=== PATIENT | female | born 1940 | race Caucasian/White ===

== ENCOUNTER 2016-12-28 16:17 | Emergency (ER) | payer OTHER, MEDICARE ==
[2016-12-28 16:32] VITALS: BP 130/89; PULSE 86; TEMP 98.1; BMI 20.9
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
[2016-12-28] MEDS ORDERED: RABIES IMMUNE GLOBULIN 300 UNITS/2 ML VIAL IM ONE (17:09)
[2016-12-28] MEDS ORDERED: RABIES VACCINE (PCEC)/PF 2.5 UNIT/VIAL IM ONE (17:10)
[2016-12-28] MEDS ORDERED: RABIES IMMUNE GLOBULIN 300 UNITS/2 ML VIAL ONE (17:26)
[2016-12-28] MEDS ORDERED: DIPHTH,PERTUSS(ACELL),TET 0.5 ML DISP.SYRIN IM ONE (17:53)
[2016-12-28] MEDS ORDERED: AMOX TR/POT CLAV 875MG/125MG TABLETS (FP) PO ONE (17:55)
[2016-12-28] MEDS ORDERED: AMOX TR/POT CLAV 875MG/125MG TABLETS (FP) ONE (17:58)
== END 2016-12-28 18:08 | disposition home or self-care (01) ==
LOC: FER 16:17
PROC: 3E0234Z Introduction of Serum, Toxoid and Vaccine into Muscle, Percutaneous Approach (ICD-10-PCS; principal; 2016-12-28)
DX: S81.851A Open bite, right lower leg, initial encounter (principal); Z20.3 Contact with and (suspected) exposure to rabies; W64.XXXA Exposure to other animate mechanical forces, initial encounter; Y93.55 Activity, bike riding; Y92.830 Public park as the place of occurrence of the external cause; E11.9 Type 2 diabetes mellitus without complications; Z79.84 Long term (current) use of oral hypoglycemic drugs; E78.00 Pure hypercholesterolemia, unspecified; E07.9 Disorder of thyroid, unspecified; Z87.891 Personal history of nicotine dependence
CPT/HCPCS: 90375; 90471; 90675; 90715; 99282-25

== ENCOUNTER 2016-12-31 09:10 | Emergency (ER) | payer OTHER, MEDICARE ==
[2016-12-31 09:18] VITALS: BP 109/63; PULSE 77; TEMP 98.1; BMI 20.9
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
[2016-12-31] MEDS ORDERED: RABIES VACCINE (PCEC)/PF 2.5 UNIT/VIAL IM ONE (09:46)
== END 2016-12-31 10:01 | disposition home or self-care (01) ==
LOC: FER 09:10
PROC: 3E0234Z Introduction of Serum, Toxoid and Vaccine into Muscle, Percutaneous Approach (ICD-10-PCS; principal; 2016-12-31)
DX: Z23 Encounter for immunization (principal); Z20.3 Contact with and (suspected) exposure to rabies; E11.9 Type 2 diabetes mellitus without complications; E78.00 Pure hypercholesterolemia, unspecified; E07.9 Disorder of thyroid, unspecified; Z87.891 Personal history of nicotine dependence
CPT/HCPCS: 90675; 99282-25

== ENCOUNTER 2017-01-04 09:50 | Emergency (ER) | payer OTHER, MEDICARE ==
[2017-01-04] MEDS ORDERED: RABIES VACCINE (PCEC)/PF 2.5 UNIT/VIAL IM ONE (09:53)
--- NOTE | 2017-01-04 09:57 | PDOC ---
*Physical Exam - Physical Exam Comments: 01/04/17 09:55 Patient for next in her series of rabies injections. No reaction so far to the vaccine. No localized or systemic symptoms. The area of initial injury on the right rodriguez is healed. There is no pain, tenderness, erythema, induration, or other sign of infection. To continue with scheduled immunizations and follow-up with her primary physician. *DC/Admit/Observation/Transfer Diagnosis at time of Disposition: Animal bite - Discharge Dispostion Disposition: HOME Condition at time of disposition: Stable Admit: No - Patient Instructions Printed Discharge Instructions: DI for Rabies Vaccine
[2017-01-04 10:15] VITALS: BP 122/72; PULSE 66; TEMP 98.1; BMI 20.9
== END 2017-01-04 10:19 | disposition home or self-care (01) ==
LOC: FER 09:50
PROC: 3E0234Z Introduction of Serum, Toxoid and Vaccine into Muscle, Percutaneous Approach (ICD-10-PCS; principal; 2017-01-04)
DX: Z23 Encounter for immunization (principal)
CPT/HCPCS: 90471; 90675; 99282-25

== ENCOUNTER 2017-01-11 10:23 | Emergency (ER) | payer OTHER, MEDICARE ==
[2017-01-11 10:34] VITALS: BP 111/74; PULSE 66; TEMP 98.2; BMI 20.9
[2017-01-11] MEDS ORDERED: RABIES VACCINE (PCEC)/PF 2.5 UNIT/VIAL IM ONE (10:55)
--- NOTE | 2017-01-11 10:55 | PDOC ---
*Physical Exam - Vital Signs Last Vital Signs Temp Pulse Resp BP Pulse Ox 98.2 F 66 16 111/74 98 01/11/17 10:25 01/11/17 10:25 01/11/17 10:25 01/11/17 10:25 01/11/17 10:25 - Physical Exam Comments: 01/11/17 11:08 Presents for next in her series of rabies vaccinations. No untoward reactions. Alert, in no acute distress, no complaints. To follow-up as directed. *DC/Admit/Observation/Transfer Diagnosis at time of Disposition: Need for rabies vaccination - Discharge Dispostion Disposition: HOME Condition at time of disposition: Stable Admit: No - Patient Instructions Printed Discharge Instructions: DI for Rabies Vaccine
== END 2017-01-11 11:22 | disposition home or self-care (01) ==
LOC: FER 10:23
PROC: 3E0234Z Introduction of Serum, Toxoid and Vaccine into Muscle, Percutaneous Approach (ICD-10-PCS; principal; 2017-01-11)
DX: Z23 Encounter for immunization (principal); Z20.3 Contact with and (suspected) exposure to rabies
CPT/HCPCS: 90471; 90675; 99281-25

== ENCOUNTER 2017-01-25 09:09 | Emergency (ER) | payer OTHER, MEDICARE ==
[2017-01-25 09:16] VITALS: BP 132/72; PULSE 68; TEMP 98.7; BMI 20.9
[2017-01-25] MEDS ORDERED: RABIES VACCINE (PCEC)/PF 2.5 UNIT/VIAL IM ONE (09:41)
--- NOTE | 2017-01-25 09:44 | PDOC ---
*Physical Exam - Vital Signs Last Vital Signs Temp Pulse Resp BP Pulse Ox 98.7 F 68 16 132/72 100 01/25/17 09:13 01/25/17 09:13 01/25/17 09:13 01/25/17 09:13 01/25/17 09:13 - Physical Exam Comments: 01/25/17 09:41 Last rabies immunization. Tolerating well. No reaction to prior injections. Vital signs normal. Physical exam without significant abnormalities. *DC/Admit/Observation/Transfer Diagnosis at time of Disposition: Rabies, need for prophylactic vaccination against - Discharge Dispostion Disposition: HOME Condition at time of disposition: Stable Admit: No - Patient Instructions Printed Discharge Instructions: DI for Rabies Vaccine
== END 2017-01-25 09:58 | disposition home or self-care (01) ==
LOC: FER 09:09
PROC: 3E0234Z Introduction of Serum, Toxoid and Vaccine into Muscle, Percutaneous Approach (ICD-10-PCS; principal; 2017-01-25)
DX: Z23 Encounter for immunization (principal); Z20.3 Contact with and (suspected) exposure to rabies
CPT/HCPCS: 90471; 90675; 99281-25

== ENCOUNTER 2017-12-30 11:29 | Emergency (ER) | payer OTHER, MEDICARE ==
--- NOTE | 2017-12-30 12:04 | PDOC ---
History of Present Illness - General Chief Complaint: Injury Stated Complaint: FELL ON FACE Time Seen by Provider: 12/30/17 11:36 History Source: Patient Exam Limitations: No Limitations - History of Present Illness Initial Comments: 12/30/17 11:59 77-year-old female history of hypothyroid diabetes here today status post injury to her face. Patient says she had a trip and fall was walking her dog when suddenly she tripped and fell forward landing on her face complaining of abrasions to her nasal bridge a lip laceration and right knee abrasion. Was ambulatory following the fall complaining of upper neck pain no weakness or numbness last tetanus was one year ago no LOC patient does not take any anticoagulation medication. Blood thinners no baby aspirin bleeding was controlled states she may have had some mild epistaxis after blowing her nose happened just prior to arrival Past History - Past Medical History Allergies/Adverse Reactions: Allergies Allergy/AdvReac Type Severity Reaction Status Date / Time codeine Allergy Intermediate Itching Verified 12/30/17 11:31 Home Medications: Ambulatory Orders Levothyroxine [Synthroid -] 88 mcg PO HS 01/25/14 Rosuvastatin Calcium [Crestor] 5 mg PO DAILY 12/28/16 metFORMIN XR [Glucophage Xr -] 750 mg PO BID 12/28/16 Chlorhexidine Gluconate [Peridex -] 15 ml MM BID #100 cup 12/30/17 Diabetes: Yes Hypercholesterolemia: Yes Thyroid Disease: Yes - Immunization History Immunization Up to Date: Yes - Suicide/Smoking/Psychosocial Hx Smoking History: Former smoker Have you smoked in the past 12 months: No If you are a former smoker, when did you quit?: 10 YEARS AGO Hx Alcohol Use: No Drug/Substance Use Hx: No Substance Use Type: Alcohol Review of Systems - Review of Systems Constitutional: No: Chills, Diaphoresis HEENTM: No: Blurred Vision Respiratory: No: Cough, Orthopnea Cardiac (ROS): No: See HPI, Chest Pain ABD/GI: No: Abdominal Distended : No: Burning, Dysuria Musculoskeletal: No: Back Pain Integumentary: Yes: Other (abrasion). No: Bruising, Change in Color Neurological: No: Headache, Numbness, Weakness All Other Systems: Reviewed and Negative *Physical Exam - Physical Exam General Appearance: Yes: Appropriately Dressed HEENT: positive: Normal ENT Inspection, Other (lower lip inner mucousal surface laceration . not thru and thru. no dental laxity. no jaw malocclusion) Neck: positive: Trachea midline, Other (no midline cervical spine tenderness). negative: Tender Respiratory/Chest: positive: Lungs Clear, Normal Breath Sounds (][place]) Cardiovascular: positive: Regular Rhythm, Regular Rate, S1, S2 Gastrointestinal/Abdominal: positive: Normal Bowel Sounds Musculoskeletal: positive: Normal Inspection, Other (no midline vertebral tenderness, right knee abrasion. superficial FROM. no effusion no eccymosis. ) Extremity: positive: Normal Capillary Refill Integumentary: positive: Normal Color, Dry, Warm, Other (abrasion nasal bridge. no nasal laxity. no eccymosis. no bony step off. abrasion right knee superifical. lower lip laceration see above) Neurologic: positive: Fully Oriented, Alert, Normal Mood/Affect, Motor Strength 5/5 (GCS 15) Procedures - Laceration/Wound Repair Lower Lip Wound Length: to 2.5 cm Wound Explored: clean Irrigated w/ Saline: Yes Betadine Prep: No Anesthesia: 1% Lidocaine Wound Repaired With: Sutures Suture Size/Type: 6:0 Number of Sutures: 2 Deep Layer Suture Size/Type: chromic Medical Decision Making - Medical Decision Making 12/30/17 12:03 Plan loose approximation of inner lip laceration due to gaping defect. Motrin as needed for pain bacitracin applied to other abrasions DC home with warning instructions *DC/Admit/Observation/Transfer Diagnosis at time of Disposition: Abrasion, Laceration of lower lip - Discharge Dispostion Disposition: HOME Condition at time of disposition: Improved Decision to Admit order: No - Prescriptions Prescriptions: Chlorhexidine Gluconate [Peridex -] 15 ml MM BID #100 cup - Referrals - Patient Instructions Printed Discharge Instructions: DI for Laceration Repair -- Simple, DI for Closed Head Injury Additional Instructions: your sutures are absorbable and do not need to be removed. you can take ibuprofen 400 mg every 8 hrs as needed for pain. you should rinse your mouth with peridex mouth wash twice daily. soft diet for 3 days. bacitracin to abrasions twice daily and wash with mild soap and water. return for any concerns. - Post Discharge Activity
[2017-12-30 12:25] VITALS: BP 121/71; PULSE 76; TEMP 98.1; BMI 22.6
== END 2017-12-30 12:20 | disposition home or self-care (01) ==
LOC: FER 11:29
PROC: 0CQ1XZZ Repair Lower Lip, External Approach (ICD-10-PCS; principal; 2017-12-30)
DX: S01.511A Laceration without foreign body of lip, initial encounter (principal); W01.0XXA Fall on same level from slipping, tripping and stumbling without subsequent striking against object, initial encounter; Y93.K1 Activity, walking an animal; Y92.89 Other specified places as the place of occurrence of the external cause; E11.9 Type 2 diabetes mellitus without complications; E03.9 Hypothyroidism, unspecified; Z88.5 Allergy status to narcotic agent; Z79.84 Long term (current) use of oral hypoglycemic drugs
CPT/HCPCS: 99281-25

== ENCOUNTER 2023-03-09 12:42 | Emergency (ER) | payer OTHER, MEDICARE ==
[2023-03-09 12:50] VITALS: BP 119/79; PULSE 72; RESP 18; TEMP 98.8; BMI 20.6
[2023-03-09] MEDS ORDERED: ACETAMINOPHEN 325 MG TABLET (FP) PO ONE (13:23)
[2023-03-09] MEDS ORDERED: ACETAMINOPHEN 325 MG TABLET (FP) ONE (13:25)
[2023-03-09] MEDS ORDERED: DIPHTH,PERTUSS(ACELL),TET 0.5 ML DISP.SYRIN IM ONE ×2 (13:33→13:39)
[2023-03-09] MEDS ORDERED: LIDOCAINE HCL 2% (50ML VIAL) INF ONE (14:00)
[2023-03-09] MEDS ORDERED: LIDOCAINE HCL 2% (20ML MULTI-DOSE VIAL) ONE (14:01)
== END 2023-03-09 14:55 | disposition home or self-care (01) ==
LOC: FER 12:42
PROC: 3E0234Z Introduction of Serum, Toxoid and Vaccine into Muscle, Percutaneous Approach (ICD-10-PCS; principal; 2023-03-09)
DX: R51.9 Headache, unspecified (principal); W01.198A Fall on same level from slipping, tripping and stumbling with subsequent striking against other object, initial encounter; Y92.410 Unspecified street and highway as the place of occurrence of the external cause
CPT/HCPCS: 70450-TC; 72125-TC; 90715; 99284-25